=== PATIENT | female | born 1985 | race Caucasian/White ===

== ENCOUNTER 2017-06-27 14:12 | Emergency (ER) | END 2017-06-27 15:00 | disposition home or self-care (01) ==

== ENCOUNTER 2018-08-04 08:11 | Emergency (ER) | payer MEDICAID ==
[~2018-08-04] VITALS: Ht 157.5 cm; Wt 60.0 kg
[~2018-08-04 08:11] MED LIST: ACET500C5 PO; AZIT250T PO; CETI10CA PO; CITA20TA11 PO; D-ME473S2 PO; ELEC100080 PO; IBUP-1542 PO; ONDA4TAB8 PO
[2018-08-04 08:14] VITALS: BP 104/83; PULSE 90; RESP 16; Ht 157.5 cm; Wt 60.0 kg
[2018-08-04] MEDS ORDERED: NAPR-985 PO (09:59)
[2018-08-04] MEDS ORDERED: CYCL10TA7 PO (09:59)
[2018-08-04] MEDS ORDERED: HYDR-4011 PO (09:59)
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
== END 2018-08-04 11:10 | disposition home or self-care (01) ==
LOC: FTE 08:11
DX: M54.2 Cervicalgia (principal); I10 Essential (primary) hypertension
CPT/HCPCS: 72040; 73000; 73030; 73562; Z7502

== ENCOUNTER 2018-10-04 12:44 | Emergency (ER) | payer MEDICAID ==
[~2018-10-04] VITALS: Ht 160 cm; Wt 69.6 kg
[~2018-10-04 12:44] MED LIST changes: +CYCL10TA7 PO; +HYDR-4011 PO; +NAPR-985 PO
[2018-10-04 12:56] VITALS: Ht 160 cm; Wt 69.6 kg
[2018-10-04] MEDS ORDERED: IBUPROFEN 800 MG TAB PO ONE (16:30)
[2018-10-04] MEDS ORDERED: METHOCARBAMOL 750 MG TAB PO ONE (16:30)
[2018-10-04] MEDS ORDERED: IBUP-1542 PO (17:48)
[2018-10-04] MEDS ORDERED: METH750T93 PO (17:48)
[2018-10-04] MEDS ORDERED: ACET-141 PO (17:48)
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
[2018-10-04 17:58] VITALS: BP 122/68; PULSE 75; RESP 16
== END 2018-10-04 17:58 | disposition home or self-care (01) ==
LOC: FTE 12:44
DX: M25.511 Pain in right shoulder (principal); M25.512 Pain in left shoulder
CPT/HCPCS: 73030; Z7502; Z7610